=== PATIENT | female | born 1980 | race African-American/Black ===

== ENCOUNTER → 2017-05-01 | Outpatient (CLI) | payer OTHER ==
[~2017-05-01] MED LIST: ATIVAN1 MG PO; AUGMENTIN 875 M1 TAB PO; AUGMENTIN 875875 MG PO; CELEXA10 MG PO; CIPROFLOXACIN500 MG PO; CLARITIN10 MG PO; COMBIVENT1 ARO IH; COMPAZINE10 MG PO; DEPAKOTE PO; DEPAKOTE500 MG PO; DEXAMETHAS0.5 MG/52 PO; FLEXERIL10 MG PO; FLONASE0.05 MG/AC NS; KEFLEX500 MG PO; KLONOPIN PO; LAMICTAL25 MG PO; METFORMIN500 MG PO; MOTRIN800 MG PO; NAPROSYN500 MG PO; NKHM; PERCOCET 325 MG1 TA5 PO; PHENERGAN12.5 MG RC; ROBITUSSIN DM120 ML PO; SPIRONOLACTONE PO; SUDAFED60 M1 PO; SYNTHROID,LEVO25 MCG PO; TESSALON PERLE200 MG PO; TRAMADOL50 MG PO; TRIAMTERENE/HCT1 CAP PO; VITAMIN D PO; XANAX0.5 MG PO; ZITHROMAX Z PA250 MG PO
[2017-05-01 11:11] LABS: BASO # 0.1 10*3/uL (0.0-0.1); BASO % 0.7 % (0.0-1.0); EOS # 0.1 10*3/uL (0.0-0.4); EOS % 1.6 % (1.0-4.0); HEMATOCRIT 39.8 % (37.0-47.0); HEMOGLOBIN 13.7 g/dl (12.0-16.0); IG # 0.1 10*3/uL (0.0-0.1); LYMPH # 2.7 10*3/uL (1.3-4.4); LYMPH % 31.1 % (27.0-41.0); MEAN CELL VOLUME 95.9 fl (81.0-99.0); MEAN CORPUSCULAR HGB CONC 34.4 g/dl (33.0-37.0); MEAN PLATELET VOLUME 11.4 fl (9.6-12.3); MONO # 0.5 10*3/uL (0.1-1.0); MONO % 5.3 % (3.0-9.0); NEUT # 5.3 10*3/uL (2.3-7.9); NEUT % 60.4 % (47.0-73.0); PLATELET COUNT AUTOMATED 232 10*3/uL (130-400); RED BLOOD COUNT 4.15 10*6/uL (4.10-5.10); RED CELL DISTRI WIDTH 11.9 % (0-14.5); WHITE BLOOD COUNT 8.8 10*3/uL (4.8-10.8)
[2017-05-01 11:32] LABS: HEMOGLOBIN A1c 5.4 % (4.8-5.6)
[2017-05-01 11:43] LABS: ALBUMIN 3.8 gm/dl (3.1-4.5); ALKALINE PHOSPHATASE 73 U/L (45-117); BILIRUBIN, TOTAL 0.5 mg/dl (0.2-1.0); BUN 18 mg/dl (7-24); CARBON DIOXIDE 22 mmol/L (21-32); CHLORIDE 107 mmol/L (98-107); EST GLOM FILT AFRICAN AMERICAN > 60 ml/min; GLUCOSE 94 mg/dL (65-99); IRON 103 ug/dL (50-170); IRON SATURATION 24 %; SGOT/AST 26 IU/L (3-35); SGPT/ALT 67 U/L (12-78); SODIUM 139 mmol/L (136-145); TOTAL PROTEIN 7.9 gm/dL (6.4-8.2); UIBC 319 ug/dL (110-365)
[2017-05-01 13:00] LABS: FERRITIN 127.8 ng/mL (10.0-291.0); VITAMIN D, 25-HYDROXY 23.3 ng/mL (30-100)
[2017-05-01 13:01] LABS: FOLIC ACID 16.1 ng/mL (>5.38)
== END | disposition home or self-care (01) ==
LOC: LAB 10:53
PROVIDERS: Surgery
DX: E66.09 Other obesity due to excess calories (principal); R79.89 Other specified abnormal findings of blood chemistry

== ENCOUNTER 2017-10-11 21:53 | Emergency (ER) | payer OTHER ==
[~2017-10-11] VITALS: Ht 157.4 cm; Wt 90.7 kg
[2017-10-11 21:58] VITALS: BP 95/61
[2017-10-11 22:24] LABS: BASO # 0.1 10*3/uL (0.0-0.1); BASO % 0.5 % (0.0-1.0); EOS # 0.1 10*3/uL (0.0-0.4); EOS % 1.4 % (1.0-4.0); LYMPH # 3.3 10*3/uL (1.3-4.4); LYMPH % 35.2 % (27.0-41.0); MEAN CORPUSCULAR HGB 31.7 pg (27.0-31.0); MEAN CORPUSCULAR HGB CONC 33.3 g/dl (33.0-37.0); MONO # 0.5 10*3/uL (0.1-1.0); MONO % 5.6 % (3.0-9.0); NEUT # 5.2 10*3/uL (2.3-7.9); PLATELET COUNT AUTOMATED 208 10*3/uL (130-400); RED BLOOD COUNT 3.79 10*6/uL (4.10-5.10); RED CELL DISTRI WIDTH 12.8 % (0-14.5); WHITE BLOOD COUNT 9.2 10*3/uL (4.8-10.8)
[2017-10-11 22:39] LABS: ALBUMIN 3.8 gm/dl (3.1-4.5); ALKALINE PHOSPHATASE 67 U/L (45-117); BUN 13 mg/dl (7-24); CHLORIDE 106 mmol/L (98-107); CREATININE 0.88 mg/dL (0.55-1.02); POTASSIUM 3.7 mmol/L (3.5-5.1); SGOT/AST 22 IU/L (3-35); SGPT/ALT 37 U/L (12-78); SODIUM 141 mmol/L (136-145); TOTAL PROTEIN 7.2 gm/dL (6.4-8.2)
[2017-10-11 23:07] LABS: BILIRUBIN 1+ (NEGATIVE); BLOOD NEGATIVE (NEGATIVE); CLARITY SL CLOUDY (CLEAR); COLOR YELLOW (YELLOW); GLUCOSE NEGATIVE (NEGATIVE); KETONE TRACE (NEGATIVE); LEUKO ESTERASE NEGATIVE (NEGATIVE); NITRITE NEGATIVE (NEGATIVE); PH 5.5 (5.0-9.0); SPECIFIC GRAVITY >= 1.030 (1.005-1.030); UROBILINOGEN 0.2 E.U./dl (0.2-1.0)
[2017-10-11 23:15] LABS: BACTERIA TRACE; MUCOUS 2+
[2017-10-11 23:21] LABS: URINE AMPHETAMINES < 1000 (1000ng/ml); URINE BARBITURATES < 200 (200ng/ml); URINE BENZODIAZEPINES < 200 (200ng/ml); URINE CANNABINOIDS (THC) > 50 (50ng/ml); URINE COCAINE < 300 (300ng/ml); URINE METHADONE < 300 (300ng/ml); URINE OPIATES < 300 (300ng/ml)
[2017-10-11 23:22] LABS: URINE PHENCYCLIDINE < 25 (25ng/ml)
== END 2017-10-11 23:51 | disposition home or self-care (01) ==
LOC: ED 21:53
PROVIDERS: Physician Assistant
DX: R55 Syncope and collapse (principal); F17.200 Nicotine dependence, unspecified, uncomplicated; Z79.899 Other long term (current) drug therapy

== ENCOUNTER 2017-11-28 13:44 | Emergency (ER) | payer OTHER ==
[~2017-11-28] VITALS: Ht 157.4 cm; Wt 80.7 kg
[2017-11-28 13:57] VITALS: BP 112/50
== END 2017-11-28 14:30 | disposition home or self-care (01) ==
LOC: ED 13:44
DX: S20.211A Contusion of right front wall of thorax, initial encounter (principal); F32.9 Major depressive disorder, single episode, unspecified; Z88.6 Allergy status to analgesic agent; W50.1XXA Accidental kick by another person, initial encounter; Y93.89 Activity, other specified; Y92.89 Other specified places as the place of occurrence of the external cause; Y99.8 Other external cause status

== ENCOUNTER 2019-01-06 15:00 | Emergency (ER) | payer OTHER ==
[~2019-01-06] VITALS: Ht 157.4 cm; Wt 68.0 kg
--- NOTE | ~2019-01-06 | EKG ---
[place], [place] ELECTROCARDIOGRAM REPORT NAME: HASEEB ONTIVEROS UNIT #: [id number] ROOM: DOCTOR: EPIPHANDERSON DRAFT REPORT BIRTHDATE: [birth year] [facility] Test Date: 2019-01-06 Test Time: 16:08:08 Pat Name: HASEEB ONTIVEROS Department: Room: Gender: F Supervisor Mill: Miriam Kim : 1980 Requested By: RHONDA LOPEZ Order Number: [id number] Reading MD: Agnes Arce Measurements Intervals [place] Rate: 52 P: 20 NM: 130 QRS: 63 QRSD: 91 T: 20 QT: 446 QTc: 415 Interpretive Statements Sinus rhythm No previous ECG available for comparison Electronically Signed On 01-09-2019 8:57:03 PDT by Agnes Arce CM:EKGRPT:ELECTROCARDIOGRAM REPORT [id number] RHONDA BARON DRAFT REPORT RHONDA LOPEZ DO
[2019-01-06 15:03] VITALS: BP 122/80
[2019-01-06 15:23] LABS: BILIRUBIN NEGATIVE (NEGATIVE); BLOOD NEGATIVE (NEGATIVE); CLARITY SL CLOUDY (CLEAR); COLOR YELLOW (YELLOW); GLUCOSE NEGATIVE (NEGATIVE); KETONE NEGATIVE (NEGATIVE); LEUKO ESTERASE NEGATIVE (NEGATIVE); NITRITE NEGATIVE (NEGATIVE); PH 7.5 (5.0-9.0); UROBILINOGEN 0.2 E.U./dl (0.2-1.0)
[2019-01-06 15:33] LABS: BACTERIA 1+; WBC 0-2 wbc/hpf (0-5)
[2019-01-06 15:40] LABS: BASO # 0.1 10*3/uL (0.0-0.1); BASO % 0.7 % (0.0-1.0); EOS # 0.2 10*3/uL (0.0-0.4); HEMATOCRIT 42.4 % (37.0-47.0); HEMOGLOBIN 14.6 g/dl (12.0-16.0); LYMPH # 2.9 10*3/uL (1.3-4.4); LYMPH % 37.7 % (27.0-41.0); MEAN CELL VOLUME 99.8 fl (81.0-99.0); MEAN CORPUSCULAR HGB 34.4 pg (27.0-31.0); MEAN CORPUSCULAR HGB CONC 34.4 g/dl (33.0-37.0); MONO # 0.4 10*3/uL (0.1-1.0); MONO % 5.5 % (3.0-9.0); NEUT # 4.1 10*3/uL (2.3-7.9); NEUT % 53.7 % (47.0-73.0); PLATELET COUNT AUTOMATED 270 10*3/uL (130-400); RED BLOOD COUNT 4.25 10*6/uL (4.10-5.10); RED CELL DISTRI WIDTH 12.6 % (0-14.5); WHITE BLOOD COUNT 7.6 10*3/uL (4.8-10.8)
[2019-01-06 15:56] LABS: ALBUMIN 3.4 gm/dl (3.1-4.5); ALKALINE PHOSPHATASE 79 U/L (45-117); BUN 12 mg/dl (7-24); CHLORIDE 107 mmol/L (98-107); CREATININE 0.83 mg/dL (0.55-1.02); LIPASE 141 U/L (73-393); SGOT/AST 22 IU/L (3-35); SGPT/ALT 21 U/L (12-78); SODIUM 140 mmol/L (136-145); TOTAL PROTEIN 7.2 gm/dL (6.4-8.2)
[2019-01-06 16:05] LABS: TROPONIN I < 0.015 ng/ml (<0.045)
[2019-01-06] MEDS ORDERED: ZOFRAN4 MG PO (17:08)
== END 2019-01-06 17:36 | disposition home or self-care (01) ==
LOC: ED 15:00
PROVIDERS: Emergency Medicine; Internal Medicine
DX: R10.84 Generalized abdominal pain (principal); R11.2 Nausea with vomiting, unspecified; F17.200 Nicotine dependence, unspecified, uncomplicated; Z98.890 Other specified postprocedural states; Z88.6 Allergy status to analgesic agent; Z88.8 Allergy status to other drugs, medicaments and biological substances; Z98.84 Bariatric surgery status

== ENCOUNTER 2019-03-09 09:42 | Emergency (ER) | payer SELFPAY ==
[~2019-03-09 09:42] MED LIST changes: +ZOFRAN4 MG PO
[2019-03-09 09:45] VITALS: BP 116/50
[2019-03-09] MEDS ORDERED: AMOXICILLIN500 M2 PO (10:30)
[2019-03-09] MEDS ORDERED: FLONASE ALLERG9.9 ML NAS (10:30)
[2019-03-09] MEDS ORDERED: ZYRTEC10 MG PO (10:30)
== END 2019-03-09 10:33 | disposition home or self-care (01) ==
LOC: ED 09:42
DX: J01.90 Acute sinusitis, unspecified (principal); J02.9 Acute pharyngitis, unspecified; H92.03 Otalgia, bilateral; Z88.6 Allergy status to analgesic agent

== ENCOUNTER 2019-05-03 21:29 | Emergency (ER) | payer SELFPAY ==
[~2019-05-03] VITALS: Ht 165.1 cm; Wt 68.0 kg
[~2019-05-03 21:29] MED LIST changes: +AMOXICILLIN500 M2 PO; +FLONASE ALLERG9.9 ML NAS; +ZYRTEC10 MG PO
[2019-05-03 21:32] VITALS: BP 111/65
== END 2019-05-03 23:45 | disposition home or self-care (01) ==
LOC: ED 21:29
DX: S61.411A Laceration without foreign body of right hand, initial encounter (principal); S91.114A Laceration without foreign body of right lesser toe(s) without damage to nail, initial encounter; F17.200 Nicotine dependence, unspecified, uncomplicated; Z88.8 Allergy status to other drugs, medicaments and biological substances; Z91.048 Other nonmedicinal substance allergy status; W22.8XXA Striking against or struck by other objects, initial encounter; Y93.89 Activity, other specified; Y92.89 Other specified places as the place of occurrence of the external cause; Y99.8 Other external cause status

== ENCOUNTER → 2019-12-20 | Outpatient (CLI) | payer OTHER | END | disposition home or self-care (01) | LOC: US 08:30 | DX: Z12.4 Encounter for screening for malignant neoplasm of cervix (principal); Z11.51 Encounter for screening for human papillomavirus (HPV); Z23 Encounter for immunization; E03.9 Hypothyroidism, unspecified; R11.0 Nausea; R63.4 Abnormal weight loss; R68.81 Early satiety; Z98.84 Bariatric surgery status ==

== ENCOUNTER → 2020-05-30 | Outpatient (CLI) | payer OTHER ==
[2020-05-30 15:37] LABS: ALBUMIN 3.5 gm/dl (3.1-4.5); ALKALINE PHOSPHATASE 70 U/L (45-117); BUN 17 mg/dl (7-24); CHLORIDE 111 mmol/L (98-107); CREATININE 0.87 mg/dL (0.55-1.02); POTASSIUM 3.7 mmol/L (3.5-5.1); SGOT/AST 17 IU/L (3-35); SGPT/ALT 24 U/L (12-78); SODIUM 141 mmol/L (136-145)
== END ==
LOC: LAB 14:33
PROVIDERS: ATTEND Obstetrics & Gynecology
DX: I49.9 Cardiac arrhythmia, unspecified (principal); D25.1 Intramural leiomyoma of uterus; R10.2 Pelvic and perineal pain

== ENCOUNTER 2020-06-10 23:07 | Emergency (ER) | payer OTHER ==
[~2020-06-10] VITALS: Ht 154.9 cm; Wt 72.6 kg
[2020-06-10 23:14] VITALS: BP 124/70
[2020-06-10] MEDS ORDERED: CEPHALEXIN500 M1 PO (23:38)
== END 2020-06-10 23:56 | disposition home or self-care (01) ==
LOC: ED 23:07
DX: T81.30XA Disruption of wound, unspecified, initial encounter (principal); F32.9 Major depressive disorder, single episode, unspecified; F41.9 Anxiety disorder, unspecified; Z98.84 Bariatric surgery status; Z88.8 Allergy status to other drugs, medicaments and biological substances; Z91.048 Other nonmedicinal substance allergy status; Z98.890 Other specified postprocedural states; Y83.8 Other surgical procedures as the cause of abnormal reaction of the patient, or of later complication, without mention of misadventure at the time of the procedure; Y92.098 Other place in other non-institutional residence as the place of occurrence of the external cause; Z90.711 Acquired absence of uterus with remaining cervical stump

== ENCOUNTER 2023-09-01 20:42 | Emergency (ER) | payer OTHER ==
[~2023-09-01] VITALS: Ht 157.4 cm; Wt 72.6 kg
[~2023-09-01 20:42] MED LIST changes: +CEPHALEXIN500 M1 PO
[2023-09-01 20:58] VITALS: BP 122/77
== END 2023-09-01 23:00 | disposition left against medical advice (07) ==
LOC: ED 20:42
DX: R51.9 Headache, unspecified (principal); R10.30 Lower abdominal pain, unspecified; M54.50 Low back pain, unspecified; Z88.8 Allergy status to other drugs, medicaments and biological substances; Z53.21 Procedure and treatment not carried out due to patient leaving prior to being seen by health care provider

== ENCOUNTER 2024-06-22 03:19 | Emergency (ER) | payer OTHER ==
[~2024-06-22] VITALS: Ht 157.4 cm; Wt 106.1 kg
[2024-06-22] MEDS ORDERED: TESTOSTERONE75 G2 TD (03:24)
[2024-06-22] MEDS ORDERED: GABAPENTIN600 MG PO (03:24)
[2024-06-22 03:25] VITALS: BP 131/83
[2024-06-22] MEDS ORDERED: BUPRENORPHINE-1 EAC1 SL (03:25)
[2024-06-22 04:31] LABS: BILIRUBIN Negative (Negative); BLOOD Trace-Lysed (Negative); CLARITY Cloudy (Clear); COLOR Yellow (Yellow); GLUCOSE Negative (Negative); KETONE Trace (Negative); LEUKO ESTERASE Negative (Negative); NITRITE Negative (Negative); PH 5.5 (4.5-8.0); SPECIFIC GRAVITY >= 1.030 (1.001-1.030)
[2024-06-22 04:37] LABS: BASO # 0.1 10*3/uL (0.0-0.1); BASO % 0.6 % (0.0-1.0); EOS # 0.3 10*3/uL (0.0-0.4); EOS % 2.1 % (1.0-4.0); HEMATOCRIT 42.1 % (37.0-47.0); LYMPH # 2.2 10*3/uL (1.3-4.4); LYMPH % 15.5 % (27.0-41.0); MEAN PLATELET VOLUME 10.3 fl (9.6-12.3); MONO # 0.6 10*3/uL (0.1-1.0); MONO % 4.5 % (3.0-9.0); NEUT # 10.9 10*3/uL (2.3-7.9); NEUT % 76.5 % (47.0-73.0); PLATELET COUNT AUTOMATED 364 10*3/uL (130-400); RED BLOOD COUNT 4.34 10*6/uL (4.10-5.10); RED CELL DISTRI WIDTH 12.5 % (0-14.5); WHITE BLOOD COUNT 14.3 10*3/uL (4.8-10.8)
[2024-06-22 04:39] LABS: URINE AMPHETAMINES Positive (1000ng/ml); URINE BARBITURATES Negative (200ng/ml); URINE BENZODIAZEPINES Negative (200ng/ml); URINE CANNABINOIDS (THC) Positive (50ng/ml); URINE COCAINE Negative (300ng/ml); URINE METHADONE Negative (300ng/ml); URINE OPIATES Negative (300ng/ml); URINE PHENCYCLIDINE Negative (25ng/ml)
[2024-06-22 04:50] LABS: EPITHELIAL CELLS 41-50
[2024-06-22 04:51] LABS: BACTERIA TRACE
[2024-06-22 04:56] LABS: ALKALINE PHOSPHATASE 98 U/L (46-116); BUN 12 mg/dl (9-23); CHLORIDE 107 mmol/L (98-107); POTASSIUM 3.6 mmol/L (3.4-5.1); SGPT/ALT 30 U/L (5-49); TOTAL PROTEIN 7.2 gm/dL (6.0-8.0)
[2024-06-22 04:57] LABS: ETHYL ALCOHOL < 3.0 mg/dl (<3)
== END 2024-06-22 05:36 ==
LOC: ED 03:19
PROVIDERS: Emergency Medicine
DX: S09.8XXA Other specified injuries of head, initial encounter (principal); R45.851 Suicidal ideations; F41.9 Anxiety disorder, unspecified; F31.9 Bipolar disorder, unspecified; Z88.8 Allergy status to other drugs, medicaments and biological substances; Z90.710 Acquired absence of both cervix and uterus; Z98.890 Other specified postprocedural states; Z79.899 Other long term (current) drug therapy; W22.03XA Walked into furniture, initial encounter; Y93.89 Activity, other specified; Y92.89 Other specified places as the place of occurrence of the external cause; Y99.8 Other external cause status